=== PATIENT | female | born 1930 | race Caucasian/White ===

== ENCOUNTER 2018-01-28 21:15 | Emergency (ER) | payer OTHER, MEDICARE ==
[~2018-01-28 21:15] MED LIST: ANTIVERT 25 MG25 MG PO
[2018-01-28 21:25] VITALS: BP 129/73
--- NOTE | 2018-01-28 21:46 | ED UPPER/LOWER EXTREMITY COMPL ---
History of Present Illness General Chief Complaint: Lower Extremity Injury Stated Complaint: LEFT KNEE PAIN AND SWELLING Source: W10 Exam Limitations: dementia Vital Signs & Intake/Output Vital Signs & Intake/Output Vital Signs Date Time Temp Pulse Resp B/P B/P Pulse O2 O2 Flow FiO2 Mean Ox Delivery Rate 01/28 2347 18 01/28 2129 Room Air 01/28 2125 99.3 72 18 129/73 95 Room Air ED Intake and Output 01/29 0000 01/28 1200 Intake Total 0 Output Total 0 Balance 0 Intake, Oral 0 Output, Urine 0 Allergies Coded Allergies: NO KNOWN ALLERGIES (12/20/12) Reconcile Medications Meclizine (Meclizine HCl) 25 MG TABLET 1 TAB PO TIDPRN DIZZINESS Triage Note: 87 YEAR OLD FEMALE BIB[facility]orena FROM [facility] IN [place] WITH LEFT KNEE PAIN, WHICH STARTED YESTERDAY AND LEFT KNEE SWELLING, WHICH STARTED TODAY. PATIENT IS AWAKE, ALERT, AND CONFUSED. PER EMS, THIS IS HER BASELINE. SKIN IS WARM AND DRY. PATIENT VERBALIZING AND THOUGHTS ARE DISORGANIZED. Triage Nurses Notes Reviewed? yes Onset: Gradual Duration: day(s): Timing: recent history Severity: moderate Pain/Injury Location: Left: Knee. Method of Injury: unknown HPI: 87yo female with hx of Alzheimer's disease WILIAN from [facility] for left knee pain and swelling. HPI is limited d/t patient's dementia, HPI obtained from W10. Patient was found on the ground yesterday and reported left knee pain. Xrays performed yesterday as outpatient were negative for fractures. Patient found on the gound again today and had persistent pain and swelling in left knee, was brought to ED for further work up. Patient normally ambulatory without assistance at baseline. Per staff, patient's cognitive function/mentation is at her baseline. (Zayda ESQUEDA,Madisyn Yeh) Past History Travel History Traveled to [place] past 21 day No Medical History Any Pertinent Medical History? see below for history Neurological: Alzheimer's disease, dementia, migraine EENT: cataracts Blood Disorders: anemia Other Medical Hx: Alzheimer's, anemia, migraines, vertigo Surgical History Surgical History: non-contributory Psychosocial History What is your primary language Maltese Tobacco Use: Refused to answer Family History Hx Contributory? No (Zayda ESQUEDA,Madisyn Yeh) Review of Systems Review of Systems Constitutional: Reports: no symptoms. Musculoskeletal: Reports: see HPI. Comments ROS limited d/t patient's dementia (Zayda ESQUEDA,Madisyn Yeh) Physical Exam Physical Exam General Appearance: well developed/nourished, no apparent distress, alert, awake Head: atraumatic, normal appearance Eyes: Bilateral: normal appearance, PERRL, EOMI. Ears, Nose, Throat: hearing grossly normal Neck: normal inspection, supple, full range of motion, no midline tenderness Cardiovascular/Respiratory: normal breath sounds, normal peripheral pulses, no respiratory distress Peripheral Pulses: 2+ dorsalis pedis (R), 2+ dorsalis pedis (L) Back: normal inspection, normal range of motion, no vertebral tenderness Hip Left: nontender Hip Right: nontender Knee Left: swelling noted, knee is nontender however patient complains with passive ROM of knee Knee Right: knee is nontender, no complaints with passive ROM of knee Foot Left: normal inspection, normal range of motion Foot Right: normal inspection, normal range of motion Skin: intact, normal color, warm/dry Comments: exam is limited d/t patient's dementia, she cannot follow commands (Zayda ESQUEDA,Madisyn Yeh) Progress Differential Diagnosis: compartment syndrome, contusion, DVT, fracture, sprain, tendon injury Plan of Care: Orders Procedure Date/time Status Durable Medical Equipment 01/29 0035 Active X-ray images show a tibial plateau fracture. Spoke with orthopedic Dr. Zendejas regarding this patient - he recommends knee immobilizer, nonweightbearing, follow up as outpatient. He states this is patient is not likely a surgical candidate. He recommends obtaining CT scan prior to discharge. Patient is in no acute distress, she has intact distal pulses, low suspicion for acute compartment syndrome. Discussed all findings with Dr. Huddleston who agrees with the plan of care. Diagnostic Imaging: Viewed by Me: Radiology Read. Discussed w/RAD: Radiology Read. Radiology Impression: PATIENT: KELLI PARKER PRESENT AGE: 87 PATIENT ACCOUNT NO: [id number] : [birth year] LOCATION: [facility] ORDERING PHYSICIAN: Madisyn ESQUEDA SERVICE DATE: 01/28/18 EXAM TYPE: RAD - XRY-AP PELVIS EXAMINATION: XR PELVIS CLINICAL INFORMATION: Left hip abnormality COMPARISON: None TECHNIQUE: AP view of the pelvis. FINDINGS: No acute fracture or dislocation. Mild symmetric bilateral hip osteoarthritis. Marked facet arthropathy at L4-L5 and L5-S1. IMPRESSION: No acute fracture or dislocation. DICTATED BY: Chapo Ribeiro MD DATE/TIME DICTATED:01/28/182158 COST CONTROLLER:AMY DATE/TIME TRANSCRIBED:01/28/182158 CONFIDENTIAL, DO NOT COPY WITHOUT APPROPRIATE AUTHORIZATION. <Electronically signed in Other Vendor System> SIGNED BY: Chapo Ribeiro MD 01/28/182210, PATIENT: KELLI PARKER PRESENT AGE: 87 PATIENT ACCOUNT NO: [id number] : [birth year] LOCATION: ER ORDERING PHYSICIAN: Madisyn ESQUEDA SERVICE DATE: 01/28/18 EXAM TYPE: RAD - XRY-KNEE COMPLETE LEFT EXAMINATION : XR KNEE, LEFT CLINICAL INFORMATION: Left knee swelling and pain COMPARISON: None TECHNIQUE: Four views of the left knee. FINDINGS: There is a mildly depressed lateral tibial plateau fracture. Moderate joint effusion. Patellofemoral and medial compartments appear normal. IMPRESSION: Mildly impacted lateral tibial plateau fracture with a joint effusion. DICTATED BY: Chapo Ribeiro MD DATE/TIME DICTATED:01/28/182157 COST CONTROLLER: AMY DATE/TIME TRANSCRIBED:01/28/182157 CONFIDENTIAL, DO NOT COPY WITHOUT APPROPRIATE AUTHORIZATION. <Electronically signed in Other Vendor System> SIGNED BY: Chapo Ribeiro MD 01/28/182201, PATIENT: KELLI PARKER PRESENT AGE: 87 PATIENT ACCOUNT NO: [id number] : [birth year] LOCATION: ER ORDERING PHYSICIAN: Madisyn ESQUEDA SERVICE DATE: 01/28/18 EXAM TYPE: CAT - CT LOWER EXT WO IV CONTRAST EXAMINATION: CT LOWER EXTREMITY WITHOUT CONTRAST, LEFT CLINICAL INFORMATION: Left lateral tibial plateau fracture. COMPARISON: January 28, 2018. TECHNIQUE: Contiguous helical images of the left knee were obtained without IV contrast. Multiplanar reconstructions were performed. DLP: 312 mGy-cm FINDINGS: There is a small knee joint effusion. As demonstrated on the plain films, there is a mildly depressed, by approximately 5 mm, lateral tibial plateau impacted fracture. The fracture line extends to the articular surface. As well, the fracture line extends to the lateral tibial spine. No additional fractures are identified. There are no dislocations. IMPRESSION: Small left knee joint effusion and mildly depressed lateral tibial plateau fracture. DICTATED BY: Dawit Wilder MD DATE/ TIME DICTATED:01/29/1824 COST CONTROLLER:AMY DATE/TIME TRANSCRIBED: 01/29/1824 CONFIDENTIAL, DO NOT COPY WITHOUT APPROPRIATE AUTHORIZATION. < Electronically signed in Other Vendor System> SIGNED BY: Dawit Wilder MD 01/29/18 003 (Madisyn Boyle) Departure Departure Disposition: HOME OR SELF CARE Condition: Stable Clinical Impression Primary Impression: Tibial plateau fracture, left Qualifiers: Encounter type: initial encounter Fracture type: closed Qualified Code: S82.142A - Displaced bicondylar fracture of left tibia, initial encounter for closed fracture Referrals: Divya Acosta MD (PCP/Family) Additional Instructions: Knee immobilizer until follow-up with orthopedic. Nonweightbearing. Return with worsening symptoms or concerns. Please note that there might be incidental findings in your evaluation that are unrelated to the current emergency department visit. Please notify your primary care doctor about this emergency department visit in order to obtain and review all of the testing performed so that these incidental findings can be monitored as needed. If you had an x-ray performed, please understand that some fractures may not be seen on the initial set of x-rays. If your symptoms persist you might need a repeat set of x-rays to check for such a fracture. If you had a laceration evaluated, please understand that foreign bodies such as glass or wood may not be visible to the naked eye or on plain x-rays. If the wound becomes red, swollen, increasingly more painful or if there is any drainage from the wound, please have it reevaluated by a physician for the possibility of a retained foreign body. If you're unable to follow up as outlined in the discharge instructions please return to the emergency department. Thank you for choosing the [facility] Emergency Department for your care. It was a pleasure to serve you today. Departure Forms: Customer Survey General Discharge Information (Madisyn Boyle) PA/TILE SPRAYER Co-Sign Statement Statement: ED Attending supervision documentation- x I saw and evaluated the patient. I have also reviewed all the pertinent lab results and diagnostic results. I agree with the findings and the plan of care as documented in the PA's/TILE SPRAYER's documentation. [] I have reviewed the ED Record and agree with the PA's/TILE SPRAYER's documentation. [] Additions or exceptions (if any) to the PAs/TILE SPRAYER's note and plan are summarized below: [] (Karo ANDERSEN,Antonio)
--- NOTE | 2018-01-28 22:02 | RADIOLOGY REPORT ---
EXAMINATION: XR KNEE, LEFT CLINICAL INFORMATION: Left knee swelling and pain COMPARISON: None TECHNIQUE: Four views of the left knee. FINDINGS: There is a mildly depressed lateral tibial plateau fracture. Moderate joint effusion. Patellofemoral and medial compartments appear normal. IMPRESSION: Mildly impacted lateral tibial plateau fracture with a joint effusion.
--- NOTE | 2018-01-28 22:11 | RADIOLOGY REPORT ---
EXAMINATION: XR PELVIS CLINICAL INFORMATION: Left hip abnormality COMPARISON: None TECHNIQUE: AP view of the pelvis. FINDINGS: No acute fracture or dislocation. Mild symmetric bilateral hip osteoarthritis. Marked facet arthropathy at L4-L5 and L5-S1. IMPRESSION: No acute fracture or dislocation.
--- NOTE | 2018-01-29 00:33 | CT SCAN REPORT ---
EXAMINATION: CT LOWER EXTREMITY WITHOUT CONTRAST, LEFT CLINICAL INFORMATION: Left lateral tibial plateau fracture. COMPARISON: January 28, 2018. TECHNIQUE: Contiguous helical images of the left knee were obtained without IV contrast. Multiplanar reconstructions were performed. DLP: 312 mGy-cm FINDINGS: There is a small knee joint effusion. As demonstrated on the plain films, there is a mildly depressed, by approximately 5 mm, lateral tibial plateau impacted fracture. The fracture line extends to the articular surface. As well, the fracture line extends to the lateral tibial spine. No additional fractures are identified. There are no dislocations. IMPRESSION: Small left knee joint effusion and mildly depressed lateral tibial plateau fracture.
== END 2018-01-29 01:20 ==
LOC: ERH 21:15
DX: S82.142A Displaced bicondylar fracture of left tibia, initial encounter for closed fracture (principal); G30.9 Alzheimer's disease, unspecified; D64.9 Anemia, unspecified; W19.XXXA Unspecified fall, initial encounter; Y92.129 Unspecified place in nursing home as the place of occurrence of the external cause
CPT/HCPCS: 72170; 73562-LT

== ENCOUNTER 2018-02-21 18:34 | Emergency (ER) | payer OTHER, MEDICARE ==
[~2018-02-21] VITALS: Ht 149.9 cm; Wt 55.2 kg
--- NOTE | 2018-02-21 20:14 | ED GENERAL ADULT ---
History of Present Illness General Chief Complaint: Fall Stated Complaint: BIBA FALL ? HEAD STRIKE Source: patient Exam Limitations: dementia Vital Signs & Intake/Output Vital Signs & Intake/Output Vital Signs Date Time Temp Pulse Resp B/P B/P Pulse O2 O2 Flow FiO2 Mean Ox Delivery Rate 02/21 2233 59 18 158/97 97 Room Air 02/21 2050 98.2 73 18 148/91 97 Room Air 02/21 1851 Room Air 02/21 1846 99.0 68 18 143/99 96 Room Air Room Air ED Intake and Output 02/22 0000 02/21 1200 Intake Total 0 Output Total Balance 0 Intake, Oral 0 Patient 122 lb Weight Weight Reported by Patient Measurement Method Allergies Coded Allergies: NO KNOWN ALLERGIES (12/20/12) Reconcile Medications Meclizine (Meclizine HCl) 25 MG TABLET 1 TAB PO TIDPRN DIZZINESS Triage Note: PT BIBA FROM ECF S/P FALL. EMS REPORTS THAT DETAILS OF THE FALL ARE UNCLEAR, WITH ORIGINAL REPORT STATING THAT FALL WAS UNWITNESSED, AND LATER REPORT STATING THAT PT ATTEMPTED TO GET OUT OF HER WHEELCHAIR, STOOD ON HER PREVIOUSLY BROKEN LEFT LEG, WAS UNABLE TO BEAR WEIGHT, AND FELL STRIKING THE RIGHT SIDE OF HER HEAD. ON EMS ARRIVAL TO FACILITY, PT HAD BEEN REMOVED FROM FLOOR AND PLACED IN BED, TIME ELAPSED APPROX 30 MINUTES. ASA DAILY; NO OTHER BLOOD THINNERS. ECF DENIES LOC. PT ARRIVES AWAKE, ALERT AND CONFUSED AT BASELINE. UNABLE TO ANSWER WELLNESS OR EVENT QUESTIONS APPROPRIATELY. SBP IN 140s. ALL OTHER VSS. Triage Nurses Notes Reviewed? yes Onset: Abrupt Duration: minute(s): Timing: single episode today HPI: 87-year-old female with a history of Alzheimer's, migraines, and anemia presenting status post mechanical fall just prior to arrival. Patient was brought in by ambulance from her ECF after a witnessed fall. Patient is currently under treatment for a known left tibial plateau fracture. She has been wearing a brace on that knee. She attempted to stand up from her wheelchair and put weight on the left lower extremity, causing her to collapse and fall. She struck the right side of her head on the ground. There was no loss of consciousness. She is not on any anticoagulation. Patient arrives to the emergency department confused, at her baseline. (Raquel Krishna) Past History Medical History Any Pertinent Medical History? see below for history Neurological: Alzheimer's disease, dementia, migraine EENT: cataracts Blood Disorders: anemia Other Medical Hx: Alzheimer's, anemia, migraines, vertigo Surgical History Surgical History: non-contributory Psychosocial History What is your primary language French Family History Hx Contributory? No (Raquel Krishna) Review of Systems Review of Systems Constitutional: Reports: no symptoms. EENTM: Reports: no symptoms. Respiratory: Reports: no symptoms. Cardiovascular: Reports: no symptoms. GI: Reports: no symptoms. Genitourinary: Reports: no symptoms. Musculoskeletal: Reports: see HPI. Skin: Reports: no symptoms. Neurological/Psychological: Reports: no symptoms. Hematologic/Endocrine: Reports: no symptoms. Immunologic/Allergic: Reports: no symptoms. All Other Systems: Reviewed and Negative (Raquel Krishna) Physical Exam Physical Exam General Appearance: well developed/nourished, no apparent distress, alert, awake Comments: Primary Survey: Airway: intact Breathing: breath sounds equal bilaterally Circulation: 2+ distal pulses Disability: alert, pupils equally round and reactive Secondary Survey: Head: Normocephalic, abrasion to right anglican, no skull depressions/deformities Ears: No hemotympanum Nose: No epistaxis or septal hematomas Throat/mouth : No oral lacerations, no missing teeth Face: No abrasions/lacerations, no crepitus or deformities Neck: No midline TTP, unrestricted c-spine ROM Heart: Regular rate and rhythm Lungs: Clear to auscultation bilaterally with normal air entry Chest: tenderness over the right chest wall, no flail segments Abdomen: Soft, nontender, nondistended, normal bowel sounds Pelvis: Non-tender and stable to AP and lateral compression Extremities: Normal range of motion of all joints, no abrasions/lacerations ( left knee not ranged due to known fx) Neurologic: Cranial nerves grossly intact within limits of exam, sensation intact, withdraws to pain, reflexes 2+ Skin: warm and dry and without ecchymoses or abrasions Back: No midline TTP of T-spine or L-spine Rectal exam: deferred Core Measures ACS in differential dx? No CVA/TIA Diagnosis: No Sepsis Present: No Sepsis Focused Exam Completed? No (Raquel Krishna) Progress Differential Diagnoses I considered the following diagnoses in my evaluation of the patient: [Head contusion versus concussion versus ICH versus cranial fracture versus C-spine fracture versus chest wall contusion versus rib contusion] Plan of Care: Orders Procedure Date/time Status XRY-RIBS UNILATERAL-RIGHT 02/21 1941 Active XRY-KNEE COMPLETE LEFT 02/21 1941 Active XRY-CHEST XRAY, TWO VIEWS 02/[address] HEAD WO IV CONTRAST 02/[address] CERV SPINE WO IV CONTRAST 02/[address] head and c-spine IMPRESSION: 1. No acute intracranial abnormality. 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 2. No acute osseous abnormality within the cervical spine. Advanced cervical spondylosis. Knee x-ray IMPRESSION: Similar appearance to the mildly impacted lateral tibial plateau fracture and improving small left knee effusion. Rib x-ray IMPRESSION: No acute pulmonary process. No pneumothorax. No displaced rib fractures are seen. Patient cleared for discharge back to her ECF. Initial ED EKG: none (Raquel Krishna) Departure Departure Disposition: ACUTE REHAB FACILITY Condition: Stable Clinical Impression Primary Impression: Closed head injury Secondary Impressions: Chest wall pain, Fall Referrals: Erik ANDERSEN,Abdias Mercedes (PCP/Family) Additional Instructions: Use Tylenol and ice as needed for pain. Follow-up with the primary care provider for reevaluation. Return to the emergency department for any new or worsening symptoms. Departure Forms: Customer Survey General Discharge Information (Raquel Krishna) PA/AUTOMOBILE DETAILER Co-Sign Statement Statement: ED Attending supervision documentation- [X] I saw and evaluated the patient. I have also reviewed all the pertinent lab results and diagnostic results. I agree with the findings and the plan of care as documented in the PA's/AUTOMOBILE DETAILER's documentation. [] I have reviewed the ED Record and agree with the PA's/AUTOMOBILE DETAILER's documentation. [] Additions or exceptions (if any) to the PAs/AUTOMOBILE DETAILER's note and plan are summarized below: [] (Celina ANDERSEN,Kyree Rollins) Critical Care Note Critical Care Note Critical Care Time: non-applicable (Raquel Krishna)
--- NOTE | 2018-02-21 20:49 | RADIOLOGY REPORT ---
EXAMINATION: XR CHEST 2 VIEWS XR RIBS, RIGHT CLINICAL INFORMATION: Pain status post fall COMPARISON: Chest radiograph 09/04/2014. TECHNIQUE: 2 views of the chest with 3 images and 3 views of the right ribs submitted. FINDINGS: Chest: Moderate thoracic kyphosis. The cardiac silhouette is not significantly enlarged. The lung volumes are decreased. Chronic mild vascular prominence and interstitial markings. No dominant consolidation or pleural effusion. No pneumothorax. Right ribs: Degenerative changes are seen in the thoracic spine. No displaced rib fractures are seen. IMPRESSION: No acute pulmonary process. No pneumothorax. No displaced rib fractures are seen.
--- NOTE | 2018-02-21 20:50 | RADIOLOGY REPORT ---
EXAMINATION: XR KNEE, LEFT CLINICAL INFORMATION: Prior tibial plateau fracture. Fall. COMPARISON: Left knee radiographs 01/28/2018. TECHNIQUE: Four views of the left knee. FINDINGS: Trace knee effusion. Persistent mildly depressed lateral tibial plateau fracture is similar to prior. No new superimposed process is identified. The lateral and patellofemoral joint spaces are maintained. IMPRESSION: Similar appearance to the mildly impacted lateral tibial plateau fracture and improving small left knee effusion.
--- NOTE | 2018-02-21 22:10 | CT SCAN REPORT ---
CT HEAD WITHOUT IV CONTRAST CT CERVICAL SPINE WITHOUT IV CONTRAST INDICATION: Fall. COMPARISON: Head CT 11/17/2014. TECHNIQUE: Multidetector CT acquisitions of the head and cervical spine were obtained without IV contrast. Multiplanar reformats were acquired and utilized for image interpretation. 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 Calcification along the falx cerebri which is limitedly assessed secondary to motion artifact. There is no intracranial hemorrhage, hydrocephalus, extra-axial surface collection, midline shift, or other herniation pattern. Nation to white matter differentiation is diffusely maintained without evidence of an evolved acute territorial infarct. The basilar cisterns are preserved. No significant soft tissue abnormality. No acute osseous abnormality. There is a right mastoid effusion. Left mastoid air cells and the paranasal sinuses are clear. CERVICAL SPINE: There is straightening of the cervical lordosis. There is mild degenerative anterior subluxation of C2 on C3, C3 on C4, and C4 on C5. Advanced disc volume loss at C4-C5, C5-C6, and C6-C7. Hypertrophic degenerative changes at the atlantodental interval. There is no acute fracture and there is no acute subluxation. The craniocervical and atlantoaxial articulations are normal. There is no prevertebral soft tissue swelling. No significant soft tissue abnormality within the neck. The visualized lung apices are clear. IMPRESSION: 1. No acute intracranial abnormality. 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 2. No acute osseous abnormality within the cervical spine. Advanced cervical spondylosis.
[2018-02-21 22:33] VITALS: BP 158/97
== END 2018-02-21 22:51 ==
LOC: ERH 18:34
DX: S09.90XA Unspecified injury of head, initial encounter (principal); R07.89 Other chest pain; F03.90 Unspecified dementia, unspecified severity, without behavioral disturbance, psychotic disturbance, mood disturbance, and anxiety; S82.142D Displaced bicondylar fracture of left tibia, subsequent encounter for closed fracture with routine healing; W19.XXXA Unspecified fall, initial encounter; Y93.89 Activity, other specified; Y92.9 Unspecified place or not applicable
CPT/HCPCS: 71046; 71100-RT; 73562-LT